=== PATIENT | female | born 1940 | race Caucasian/White ===

== ENCOUNTER 2023-11-16 09:58 | Outpatient (AMB) | payer MEDICARE, SELFPAY ==
--- OUTSIDE RECORDS SUMMARY | 2023-11-16 09:59 | XMS_ITS | Continuity of Care Document ---
Author Organization [facility] Address [address] [place] [address]- Care Team Providers Care Hydroponics Grower Name Role Phone Catrachito Palacios MD Primary Care Physician [phone] Encounter 04/03/19 - 04/10/19 [facility] [address], [address] [address]- [phone] Attending Physician: Catrachito Palacios MD Admitting Physician: Catrachito Palacios MD Referring Physician: Catrachito Palacios MD
--- OUTSIDE RECORDS SUMMARY | 2023-11-16 09:59 | XMS_ITS | Continuity of Care Document ---
Author Organization [facility] Address [address] [facility] [address] [place] [address]- Care Team Providers Care Contact Center Associate Name Role Phone Catrachito Palacios MD Primary Care Physician [phone] Encounter 10/29/20 - 11/05/20 [facility] [address], [facility] [address] [place] [address]- Attending Physician: Catrachito Palacios MD Admitting Physician: Catrachito Palacios MD Referring Physician: Catrachito Palacios MD
[2023-11-16 10:04] VITALS: BP 132/84; PULSE 62; TEMP 36.6; O2SAT 98; BMI 23.5
--- NOTE | 2023-11-16 10:04 | AM.OFFWIN_ITS ---
Intake Vital Signs 3 11/16/23 10:04 Height 5 ft 4 in Weight 137 lb BMI 23.5 BP 132/84 Blood Pressure Location Lt brachial Position Sitting Pulse 62 Pulse Source Pulse Oximeter Temp 97.9 F Temp Source Oral Pulse Oximetry (%) 98 Oxygen Delivery Method Room Air Intake Visit Reasons: EP Rash on back Intake Note: pt c/o rash on back. Started yesterday Patient Tobacco Use Status: Former Tobacco user Allergies No Known Allergies Allergy (Verified 11/16/23 10:22) Do you need a note to return to daycare/school/sports/work: No HPI HPI Comments 2 History of Present Illness0 Details 83 y/o female patient who presents to [facility] walk in clinic with c/o Rash on her back Since yesterday. Reports that rash is very itchy. PFSH Social History Patient Tobacco Use Status: Former Tobacco user Review of Systems Const All systems reviewed & are unremarkable except as noted in HPI and below Physical Exam Vital Signs: Last Vital Signs Temp 97.9 F 11/16/23 10:04 Pulse 62 11/16/23 10:04 BP 132/84 11/16/23 10:04 Pulse Ox 98 11/16/23 10:04 Oxygen Delivery Method Room Air 11/16/23 10:04 BMI result Body Mass Index 23.5 Const General: cooperative, comfortable and no acute distress Orientation/consciousness: patient oriented x3 Skin General skin exam: dry skin Full body images: 2 1. Small red Pimple like lesions, dry skin Neuro General: patient oriented x3, gait normal and moves all extremities Psych Speech and movement: Normal speech and movement present Assessment & Plan Assessment & Plan (1) Rash and nonspecific skin eruption: Code(s): R21 - Rash and other nonspecific skin eruption Plan: OTC Hydrocortisone cream for itching Benadrly for itching RTC if rash worse. Coding Level of Care Code Est Pt Level 3 (05659) Diagnoses Rash and nonspecific skin eruption R21 Time Spent (min) 15
== END 2023-11-16 10:44 | disposition home or self-care (01) ==
PROVIDERS: PCP Internal Medicine; Visit Provider Nurse Practitioner Family
DX: R21 Rash and other nonspecific skin eruption (principal)
CPT/HCPCS: 99213

== ENCOUNTER 2024-08-30 08:02 | Outpatient (AMB) | payer MEDICARE, SELFPAY ==
--- OUTSIDE RECORDS SUMMARY | 2024-08-30 08:11 | XMS_ITS | Clinical Summary ---
Author Organization [employer] Address [address] [place] [address] Care Team Providers Care Computer Operations Technician Name Role Phone Unavailable Primary Care Provider Unavailabl e Encounters Date Type Department Care Team Description 07/06/2024 Telephone [facility] [address] [place], [place] [phone] Valentin Guaman MD telephone call 06/30/2024 Patient Outreach [facility] [address] [place], [place] [phone] Ana Cummings DO Pre-visit Planning (SDOH will need to be completed in office. ) from Last 3 Months Social History Tobacco Use Types Packs/Day Years Used Date Smoking Tobacco: Never Assessed Comments Unknown Sex and Gender Information Value Date Recorded Sex Assigned at Female 01/05/2022 10:39 AM EDT Legal Sex Female 10:39 AM EDT Gender Identity Female 01/05/2022 10:39 AM EDT Sexual Orientation Straight 01/05/2022 10 :39 AM EDT Plan of Treatment Health Maintenance Due Date Last Done Comments Depression Screening 1940 SDOH Screening 1940 Alcohol/Substance Use Screening 1950 Tobacco Screening 1952 DTaP/Tdap/Td Vaccines (1 - Tdap) 1957 Pneumococcal Vaccine: 50+ Years (1 of 1 - PCV) 1988 Zoster Vaccines (1 of 2) 1988 RSV Patients and Patients Aged 60 years or older (1 - 1-dose 75+ series) 2013 COVID-19 Vaccine ( - 2023-2 5 season) 2023 02/06/2021, 05/06/2020, 04/15/2020 Influenza Vaccine (Season Ended) 2024 12/30/2017 HIB Vaccines Aged Out No longer eligi ble based on patient's age to complete this topic HPV Vaccines Aged Out No longer eligi ble based on patient's age to complete this topic Hepatitis A Vaccines Aged Out No long er eligible based on patient's age to complete this topic Hepatitis B Vaccines Aged Out No long er eligible based on patient's age to complete this topic IPV Vaccines Aged Out No longer eligi ble based on patient's age to complete this topic Meningococcal B Vaccine Aged Out No l onger eligible based on patient's age to complete this topic Meningococcal Vaccine Aged Out No ivy gage eligible based on patient's age to complete this topic RSV under 20 months Aged Out No longe r eligible based on patient's age to complete this topic Rotavirus Vaccines Aged Out No longer eligible based on patient's age to complete this topic Insurance * Guarantor: Maribell Freedman Account Type Relation to Patient Date of Phone Billing Address Personal/Family Self Oziel Matute [place] [facility] MEDICARE ADVANTAGE * Guarantor: Maribell Freedman Account Type Relation to Patient Date of Phone Billing Address Personal/Family Self Oziel Matute [place]
[2024-08-30 08:24] VITALS: BP 132/60; PULSE 70; TEMP 36.4; O2SAT 95; BMI 24.1
--- NOTE | 2024-08-30 08:24 | AM.OFFWIN_ITS ---
Intake Vital Signs 08/30/24 08:24 Height 5 ft 4 in Weight 140 lb 6 oz BMI 24.1 BP 132/60 Blood Pressure Location Lt brachial Position Sitting Pulse 70 Pulse Source Pulse Oximeter Temp 97.5 F Temp Source Oral Pulse Oximetry (%) 95 Oxygen Delivery Method Room Air Intake Visit Reasons: EP-lt elbow ache from a fall Intake Note: Patient present with left elbow pain from a fall times 6 weeks Patient Tobacco Use Status: Former Tobacco user Diabetes Manager Required: No Allergies No Known Allergies Allergy (Verified 08/30/24 08:33) Do you need a note to return to daycare/school/sports/work: No HPI HPI Comments History of Present Illness Details History of Present Illness - The patient is an 84-year-old female p resenting with persistent elbow pain following a fall. - The patient fell while trying to preve nt her cat from escaping, landing on her left elbow and sustaining a black eye from her glasses. - The fall occurred several weeks ago, a nd the patient did not seek immediate medical attention or imaging at that time. - The patient reports persistent tendern ess in the left elbow, although she maintains full range of motion and does not experience severe pain. - The patient has been caring for her so n with cerebral palsy, which may have contributed to the lack of rest for her elbow. - She has not been taking any medication for pain management and prefers to avoid pills. Physical ExamPhysical Exam General: Cooperative, healthy appearing, comfortable, no acute distress and well developed Orientation: Patient oriented x3 Limitations: No limitations Head: Normal to inspection, black eye noted on the left side due to glasses impact Ears: Hearing grossly normal bilaterally Face and sinus: Normal facial exam Eyes: Appearance normal, both eyes and all related structures Neck: Normal visual inspection, full ROM Respiratory: Normal respiratory effort and able to speak in complete sentences. Skin: No rashes or lesions noted Neuro: Patient oriented x3, gait normal Back/spine: no TTP cervical, thoracic or lumbar spine, Extremities: left shoulder full ROM, left wrist full ROM, left elbow full ROM, no TTP medial or lateral epicondyle, TTP common flexor tendon of left forearm PFSH Social History Patient Tobacco Use Status: Former Tobacco user Review of Systems Const All systems reviewed & are unremarkable except as noted in HPI and below Physical Exam Vital Signs: Last Vital Signs Temp 97.5 F 08/30/24 08:24 Pulse 70 06/25/25 08:24 BP 132/60 08/30/24 08:24 Pulse Ox 95 08/30/24 08:24 Oxygen Delivery Method Room Air 08/30/24 08:24 BMI result Body Mass Index 24.1 Assessment & Plan Assessment & Plan (1) Left elbow pain: Code(s): M25.522 - Pain in left elbow Plan: - An x-ray of the left elbow is recommended to rule out any fracture or improper healing. - My interpretation of the XR is no acute fracture or dislocation. - A sling was fitted and given to patient to support the elbow and encourage rest, with instructions to wean off after 7 to 10 days. - The patient is advised to perform range of motion exercises TWICE daily to prevent stiffness. Can use ice and Aleve as needed. - Follow-up with the primary care provider is recommended if symptoms persist. Patient was informed and verbally consented to the use of an ambient scribe for clinic note documentation during this visit. (2) Fall: Code(s): W19.XXXA - Unspecified fall, initial encounter Qualifiers: Encounter type: initial encounter Qualified Code(s): W19.XXXA - Unspecified fall, initial encounter Plan: as above Orders: Orders XR elbow LT min 3V Today M25.522 - Pain in left elbow, W19.XXXA - Unspecified fall, initial encounter Coding Level of Care Code New Pt Level 4 (46916) Diagnoses Left elbow pain M25.522 Fall, initial encounter W19.XXXA Encounter type: initial encounter
== END 2024-08-30 09:46 | disposition home or self-care (01) ==
PROVIDERS: PCP Internal Medicine; Visit Provider Physician Assistant
DX: M25.522 Pain in left elbow (principal); W19.XXXA Unspecified fall, initial encounter

== ENCOUNTER 2024-08-30 08:02 | Outpatient (REF) | payer MEDICARE, SELFPAY ==
--- NOTE | ~2024-08-30 | XR_ITS ---
EXAMINATION: XR ELBOW 3 VIEWS LEFT HISTORY: M25.522 - Pain in left elbow COMPARISON: There are no prior studies available for comparison. FINDINGS: Four views of the left elbow are submitted. Osseous mineralization is normal. There is no fracture or dislocation. There is mild degenerative change. The soft tissues are unremarkable. There is no joint effusion. XR/XR elbow LT min 3V IMPRESSION: Mild degenerative changes. No evidence of fracture of the left elbow. Electronically signed by: Herbie Sandoval MD 08/30/2024 09:10 AM EDT
== END 2024-08-30 08:03 | disposition home or self-care (01) ==
LOC: HO.HMGCX 08:02
PROVIDERS: PCP Internal Medicine; Visit Provider Physician Assistant
DX: M25.522 Pain in left elbow (principal); Z91.81 History of falling
CPT/HCPCS: 73080; 99202

== ENCOUNTER → 2024-08-30 08:57 | Outpatient (BNV) | payer MEDICARE, SELFPAY | PROVIDERS: PCP Internal Medicine; Visit Provider Radiology Diagnostic Radiology | DX: M25.522 Pain in left elbow (principal) | CPT/HCPCS: 73080 ==